=== PATIENT | male | born 1935 | race Caucasian/White ===

== ENCOUNTER 2021-01-22 19:30 | Emergency (ER) | payer MEDICARE, OTHER, SELFPAY ==
[2021-01-22 19:42] VITALS: BP 205/94; PULSE 70; RESP 15; TEMP 36.3; O2SAT 97; BMI 28.9
[2021-01-22 23:20] LABS: Hematocrit 48.3 % (41-53); Hemoglobin 16.6 g/dL (13.5-17.5)
[2021-01-22 23:25] LABS: INR 2.7 (0.9-1.3); Prothrombin Time 31.4 SECONDS (10.1-12.7)
[2021-01-23 00:48] VITALS: BP 198/98; PULSE 70; RESP 17; O2SAT 97
[2021-01-23] MEDS: PROPARACAINE 0.5% OPHTH SOL 1 DROPS EYE-RIGHT (01:06)
--- NOTE | 2021-01-23 02:56 | ED_ITS ---
HPI - Eye Problem General Chief complaint: Eye Problems Stated complaint: rt eye visual changes, redness Time Seen by Provider: 01/22/21 23:02 Source: patient Mode of arrival: Ambulatory Limitations: no limitations History of Present Illness HPI Narrative: 85M former smoker on coumadin with pacemaker presents with a chief complaint of change in vision of his right eye of. He states that he started having clotting vision 6 or 7 days ago and has gradually worsened to the point where today he can only see vague shadows and no discernible images. He denies any pain nor any trauma. Over the course of the day he was working and someone mention his eye was bleeding, he looked in the mirror noted and impressive swelling and subconjunctival hemorrhage of his right eye. He has no headache or other neurologic symptoms. He denies any history of the same. Related Data Home Medications Medication Instructions Recorded Confirmed aspirin 81 mg PO QDAY #0 01/18/17 01/22/21 furosemide 40 mg tablet 40 mg PO QAM 11/05/20 01/22/21 multivitamin 1 tab PO DAILY 11/05/20 01/22/21 sennosides 8.6 mg tablet 8.6 mg PO DAILY PRN 11/05/20 01/22/21 Previous Rx's Medication Instructions Recorded atorvastatin [Lipitor] 20 mg PO HS #30 tab 01/18/17 carvedilol [Coreg] 6.25 mg PO BID #60 tab 01/18/17 methotrexate sodium 5 tab PO QWEEK #20 tab 01/18/17 tamsulosin [Flomax] 0.4 mg PO QDAY #30 cap 01/18/17 warfarin [Coumadin] 5 mg PO SEE INSTRUCTIONS #100 tab 01/18/17 nitroglycerin 0.4 mg sublingual 0.4 mg SUBLINGUAL Q5-15M PRN #30 11/09/20 tablet tab albuterol sulfate 90 mcg/actuation 2 puff INHALATION Q4-6H PRN #6.7 g 11/26/20 aerosol inhaler Allergies Allergy/AdvReac Type Severity Reaction Status Date / Time lisinopril [LISINOPRIL] Allergy Severe Swelling/UN Verified 01/22/21 19:52 SPECIFIED meperidine [From DEMEROL] Allergy Severe Anaphylaxis Verified 01/22/21 19:52 Review of Systems Constitutional Constitutional: Denies chills, Denies fatigue, Denies fever(s), Denies frequent falls, Denies lethargy and Denies weakness Eyes Eyes: Reports blurry vision, Denies change in vision, Denies eye discharge, Denies irritation and Reports loss of vision ENT Ears, Nose, Mouth, and Throat: Denies change in voice, Denies dizziness, Denies neck pain, Denies sore throat and Denies throat swelling Cardiovascular Cardiovascular: Denies chest pain, Denies irregular heart rhythm, Denies lightheadedness, Denies palpitations, Denies dyspnea, Denies dyspnea on exertion and Denies orthopnea Respiratory Respiratory: Denies cough, Denies dyspnea, Denies dyspnea on exertion and Denies wheezing Gastrointestinal Gastrointestinal: Denies abdominal pain, Denies change in bowel habits, Denies diarrhea, Denies nausea and Denies vomiting Musculoskeletal Musculoskeletal: Denies neck pain and Denies numbness Integumentary/Breasts Skin/Breast: Denies pruritus, Denies erythema, Denies rash and Denies wounds Neurologic Neurologic: Denies behavioral changes, Denies confusion, Denies dizziness, Denies frequent falls, Reports loss of vision, Denies numbness and Denies weakness Psychiatric Psychiatric: Denies anxiety, Denies behavioral changes, Denies confusion, Denies depression, Denies homicidal ideation and Denies suicidal ideation Endocrine Endocrine: Denies fatigue, Denies flushing and Denies palpitations Hematologic/Lymphatic Hematologic/Lymphatic: Denies easy bruising Allergic/Immunologic Allergic/Immunologic: Denies urticaria, Denies throat swelling and Denies wheezing Patient History Medical History Atrial fibrillation Cataracts, bilateral H/O adenomatous polyp of colon Presence of cardiac pacemaker Rheumatic fever Surgical History Anesthesia History of cataract removal with insertion of prosthetic lens History of coronary artery stent placement History of eye surgery History of surgery S/P AVR (aortic valve replacement) Social History Smoking Status: Former smoker quit status: quit date established additional social history: QUIT DATE FOR SMOKIN07/20/1994 Smoking Status: Former smoker alcohol intake frequency: 0-2 drinks per day Substance Use Type: does not use Exam Narrative Exam Narrative: GEN: AOx3 and in mild distress, GCS 15 EYES: Pupils are equal, round, and reactive to light and accommodation. Ext raoccular muscles are intact bilaterally. Large subconjunctival hemorrhage and right eye. No injection or watering. No hyphema noted. Pressure 19 mmHg. NO signficant abnormalities noted on slit lamp CHEST: Lungs are clear to auscultation bilaterally and free of wheezes, rales, or rhonchi. Heart rate is regular rhythm, there are no murmurs, clicks, rubs, or gallops. There is no chest wall tenderness. ABD: Abdomen is soft and nontender. There is no guarding or rebound. Bowel sounds are normal in all 4 quadrants. There is no mass or organomegaly. EXT: Full painless ROM of all extremities with no loss of sensation or strength. SKIN: Warm, pink, and dry. No erythema or rash Initial Vital Signs Initial Vital Signs: Vital Signs Temperature 97.4 F L 01/22/21 19:42 Pulse Rate 70 01/22/21 19:42 Respiratory Rate 15 01/22/21 19:42 Blood Pressure 205/94 H 01/22/21 19:42 Pulse Oximetry 97 01/22/21 19:42 Course Course Course Narrative: call to [facility]. NO obvious source of vision change, they request patient be transferred down to [facility] for complete dilated exam. Patient is aware of and in agreement with the plan. Orders Ordered: ED Orders 01/22/21 23:10 Hemoglobin and Hematocrit Stat Prothrombin Time INR Stat 01/23/21 03:44 COVID19 -Nasal swab/Pre-Proc Stat Discontinued Medications Proparacaine HCl (Proparacaine 0.5% Ophth Doris) 1 drops EYE-RIGHT NOW ONE Stop: 01/23/21 01:02 Last Admin: 01/23/21 01:06 Dose: 1 drops Documented by: CTRMARIO Vital Signs Vital signs: Vital Signs - 8 hr 01/23/21 00:48 01/23/21 03:58 01/23/21 04:00 Pulse Rate 70 70 70 Respiratory Rate 17 Blood Pressure 198/98 H 161/83 H Pulse Oximetry 97 97 96 MDM - Eye Problem Lab Data Result diagrams: 01/22/21 23:10 Labs: Lab Results 01/22/21 01/22/21 01/23/21 Range/Units 23:10 23:10 03:44 Hgb 16.6 (13.5-17.5) g/dL Hct 48.3 (41-53) % PT 31.4 H (10.1-12.7) SECONDS INR 2.7 H (0.9-1.3) SARS-CoV-2 (PCR) Negative (Negative) Discharge Plan Departure Patient Disposition: [facility] Clinical Impression: Loss of vision Subconjunctival hemorrhage Qualifiers: Laterality: right Qualified Code(s): H11.31 - Conjunctival hemorrhage, right eye Prescriptions: No Action aspirin 81 MG tablet,delayed release (DR/EC) 81 mg PO QDAY Qty: 0 RF: 0 carvedilol [Coreg] 6.25 MG tablet 6.25 mg PO BID Qty: 60 RF: 5 atorvastatin [Lipitor] 20 MG tablet 20 mg PO HS Qty: 30 RF: 5 warfarin [Coumadin] 2.5 MG tablet 5 mg PO SEE INSTRUCTIONS Qty: 100 RF: 5 methotrexate sodium 2.5 MG tablet 5 tab PO QWEEK Qty: 20 RF: 5 tamsulosin [Flomax] 0.4 MG capsule,extended release 24hr 0.4 mg PO QDAY Qty: 30 RF: 5 albuterol sulfate 90 mcg/actuation HFA aerosol inhaler 2 puff inhalation Q4-6H PRN (Reason: bronchospasm) Qty: 6.7 RF: 2 nitroglycerin [Nitrostat] 0.4 mg tablet, sublingual 0.4 mg sublingual Q5-15M PRN (Reason: chest pain) Qty: 30 RF: 2 furosemide 40 mg tablet 40 mg PO QAM RF: 0 multivitamin Tablet 1 tab PO DAILY RF: 0 sennosides [senna] 8.6 mg tablet 8.6 mg PO DAILY PRN (Reason: constipation) RF: 0 Referrals: Damon Brewer MD [Primary Care Provider] -
[2021-01-23 03:58] VITALS: PULSE 70; O2SAT 97
[2021-01-23 04:00] VITALS: BP 161/83; PULSE 70; O2SAT 96
[2021-01-23 04:02] LABS: COVID19 -Nasal RAPID Negative (Negative)
== END 2021-01-23 04:35 | disposition short-term general hospital (02) ==
PROVIDERS: Emergency Provider Emergency Medicine; PCP Family Medicine
DX: H54.7 Unspecified visual loss (principal); H11.31 Conjunctival hemorrhage, right eye; Z20.822 Contact with and (suspected) exposure to COVID-19
CPT/HCPCS: 36415; 85014; 85018; 85610; 87635; 99283; 99284; C9803

== ENCOUNTER → 2025-03-05 12:15 | Outpatient (CLI) | payer MEDICARE, OTHER, SELFPAY ==
--- NOTE | 2025-03-05 12:20 | DI.RAD.S_ITS ---
PROCEDURE: FL BARIUM SWALLOW INDICATIONS: DYSPHAGIA COMPARISON: None. FINDINGS: Function: There were numerous episodes of tertiary contractions/esophageal spasms resulting in delayed and retrograde flow of ingested contrast. No elicited gastroesophageal reflux. There is normal transit of a calibrated barium tablet through the esophagus into the stomach. Morphology: Air-contrast images demonstrate normal mucosal morphology. Single contrast views show no esophageal strictures, extrinsic mass effects, or diverticula. Limited images of the stomach demonstrate normal appearance. IMPRESSION: Multiple episodes of moderate tertiary contractions/esophageal spasms resulting in delayed and retrograde flow of ingested contrast. Otherwise, no focal abnormalities identified within the esophagus. No intraluminal filling defects. No focal strictures. Dictated by: Clay Mcintosh M.D. on 03/05/2025 at 17:04 Approved by: Clay Mcintosh M.D. on 03/05/2025 at 17:07
== END ==
PROVIDERS: PCP Family Medicine; Referring Provider Family Medicine; Visit Provider Family Medicine
DX: R13.10 Dysphagia, unspecified (principal); K22.4 Dyskinesia of esophagus
CPT/HCPCS: 74220

== ENCOUNTER 2025-05-28 00:10 | Emergency (ER) | payer MEDICARE, OTHER, SELFPAY ==
[2025-05-28] VITALS (16 sets, daily range): BP systolic 137–179; BP diastolic 66–84; PULSE 60–71; RESP 14–27; TEMP 37.1; O2SAT 94–98
--- NOTE | 2025-05-28 00:24 | EKG_ITS ---
[address] [address] [address] [address] Test Date: 2025-05-28 Pat Name: Jorge Neville Department: Room: Gender: Male Pearl Technician: AMISHA : [id number] Requested By: Order Number: [id number] Reading MD: Jeff Lew MD Measurements Intervals [place] Rate: 70 P: AL: QRS: -52 QRSD: 172 T: 146 QT: 466 QTc: 503 Interpretive Statements Ventricular-paced rhythm Electronically Signed On 06-08-2025 8:59:12 PST by Jeff Lew MD
--- NOTE | 2025-05-28 00:41 | DI.RAD.S_ITS ---
PROCEDURE: XR CHEST 1V INDICATIONS: Chest Pain TECHNIQUE: One view of the chest was acquired. COMPARISON: [facility] ([place]), CR, XR CHEST 2V, 02/26/2024, 14:29. FINDINGS: Surgical changes and devices: To the cardiac pacemaker. Left atrial exclusion clip. Median sternotomy wires. Lungs and pleura: Lungs are clear. No pleural effusions or pneumothorax. Bilateral pleural calcifications, unchanged. Mediastinum: Mediastinal contours appear normal. Heart size is normal. Bones and chest wall: No suspicious bony lesions. Overlying soft tissues appear unremarkable. IMPRESSION: No acute cardiopulmonary abnormality is seen. Dictated by: Lai Mccarthy M.D. on 05/28/2025 at 1:41 Approved by: Lai Mccarthy M.D. on 05/28/2025 at 1:42
[2025-05-28 00:52] LABS: Add Manual Diff / Slide Review NO; Hematocrit 40.5 % (41-53); Hemoglobin 13.8 g/dL (13.5-17.5); Lymphocytes Absolute Auto 1000 /uL (1100-4500); Mean Corpuscular HGB Conc 34.1 % (30-36); Mean Corpuscular Hemoglobin 32.5 PG (26-34); Mean Corpuscular Volume 95.3 fL (80-100); Platelet Count 353 X10^3/uL (150-400)
[2025-05-28 00:53] LABS: INR 2.0 (0.9-1.3); Prothrombin Time 22.6 SECONDS (9.4-12.5)
[2025-05-28 00:55] LABS: PTT Partial Thromboplastin Tim 35 SECONDS (25.1-36.5)
[2025-05-28 00:58] LABS: Alanine Aminotransferase 21 IU/L (<50); Albumin 4.1 g/dL (3.5-5.0); Albumin Globulin Ratio 1.6 (1.0-2.8); Alkaline Phosphatase 87 U/L (38-126); Blood Urea Nitrogen 33 mg/dL (9-20); Calcium 8.9 mg/dL (8.4-10.2); Carbon Dioxide 28 mmol/L (22-32); Chloride 98 mmol/L (98-107); Creatine Kinase 25 U/L (55-170); Estimated Glomerular Filt Rate 49 mL/min (>60); Globulin 2.6 g/dL (1.7-4.1); Glucose 133 mg/dL (70-99); HEMOLYSIS < 15 (0-50); Lipase 703 U/L (23-300); Magnesium 2.0 mg/dL (1.6-2.3); Potassium 4.4 mmol/L (3.4-5.1); Sodium 134 mmol/L (137-145); Total Protein 6.7 g/dL (6.3-8.2)
[2025-05-28 01:10] LABS: NT-proBNP (BNP-Adult 18+) 3590 pg/mL (<450); Troponin I 0.039 ng/mL (0.01-0.034)
--- NOTE | 2025-05-28 01:15 | ED_ITS ---
HPI - Chest Pain General Chief Complaint: Chest Pain Stated Complaint: L arm/shoulder pain, chest pain Time Seen by Provider: 05/28/25 00:25 Source: patient and EMS Mode of arrival: EMS Limitations: no limitations History of Present Illness HPI narrative: 89-year-old male with a history of coronary bypass, congestive heart failure, COPD presents with sudden left shoulder pain started radiating down his left arm. He denies any shortness of breath associated with this pain. He is brought in via EMS and currently the patient is pain-free after some nitroglycerin and fentanyl. Related Data Home Medications ?Medication ?Instructions ?Recorded ?Confirmed aspirin 81 mg tablet,delayed 81 mg PO QDAY ##0 7 01/22/21 release furosemide 40 mg tablet 40 mg PO QAM 11/05/20 multivitamin 1 tab PO DAILY 11/05/2012/30 sennosides 8.6 mg tablet (senna) 8.6 mg PO DAILY PRN c onstipation 11/05/20 01/22/21 Previous Rx's ?Medication ?Instructions ?Recorded atorvastatin 20 mg tablet (Lipitor) 20 mg PO HS #30 ta bs 01/18/17 methotrexate sodium 2.5 mg tablet 5 tab PO QWEEK #20 t abs 01/18/17 tamsulosin 0.4 mg capsule (Flomax) 0.4 mg PO QDAY #30 caps 01/18/17 warfarin 2.5 mg tablet (Coumadin) 5 mg (2 x 2.5 mg) PO SEE 01/18/17 INSTRUCTIONS #100 tabs nitroglycerin 0.4 mg sublingual 0.4 mg sublingual Q5-1 5M PRN chest 11/09/20 tablet (Nitrostat) pain #30 tabs albuterol sulfate 90 mcg/actuation 2 puff inhalation Q 4-6H PRN 11/26/20 aerosol inhaler bronchospasm #6.7 grams Coreg 6.25 mg tablet (carvedilol) 6.25 mg PO BID #60 t abs 04/23/21 Allergies Allergy/AdvReac Type Severity Reaction Status Date / Time lisinopril (LISINOPRIL) Allergy Severe Swelling/UN Verified 05/28/25 00:20 SPECIFIED meperidine (From DEMEROL) Allergy Severe Anaphylaxis Verified 05/28/25 00:20 Review of Systems Review of Systems ROS Unobtainable: All systems reviewed & are unremarkable except as noted in HPI and below Patient History Medical History Atrial fibrillation Cataracts, bilateral H/O adenomatous polyp of colon Presence of cardiac pacemaker Rheumatic fever Surgical History Anesthesia History of cataract removal with insertion of prosthetic lens History of coronary artery stent placement History of eye surgery History of surgery S/P AVR (aortic valve replacement) Social History Smoking Status: Former smoker quit status: quit date established additional social history: QUIT DATE FOR SMOKIN07/20/1994 Smoking Status: Former smoker alcohol intake frequency: 0-2 drinks per day Exam Narrative Exam Narrative: General: Patient appears to be in no acute distress, acting appropriately Head: normocephalic, atraumatic, HEENT: Pupils equal round reactive, eyes tracking well, neck supple, no JVD Heart: regular rate and rhythm, no murmurs, rubs, or gallops heard Lungs: clear to auscultation, no adventitious sounds Abdomen: soft , nontender, nondistended, positive bowel sounds Neurological: no focal neurological signs, moving all extremities well, alert and oriented x3, Psych: good judgment ,good insight, mood is normal. Initial Vital Signs Initial Vital Signs: Vital Signs Temperature 98.8 F 05/28/25 00:18 Pulse Rate 71 05/28/25 00:18 Respiratory Rate 22 05/28/25 00:18 Blood Pressure 159/76 H 05/28/25 00:18 Pulse Oximetry 98 05/28/25 00:18 Oxygen Delivery Method Room Air 05/28/25 00:18 Scores HEART Score Heart Score history: Slightly Suspicious Heart Score EKG: Normal Heart Score Age: > or = 65 years old Heart Score risk factors: 1-2 risk factors Heart Score troponin: < or = to normal limit Heart Score Total: 3 Course Orders Ordered: ED Orders 05/28/25 00:25 Complete Blood Count AUTO DIFF Stat Comprehensive Metabolic Panel Stat Lipase Stat Magnesium Stat NT-proBNP (BNP-Adult 18+) Stat PTT Partial Thromboplastin Rojelio Stat Prothrombin Time INR Stat Troponin & CK Cardiac Panel Stat 05/28/25 00:41 XR chest 1V Stat EKG-12 Lead Stat 05/28/25 02:35 Trop I [Troponin I] Stat 05/28/25 04:35 Troponin I Stat Reevaluation(s) Reevaluation #1: Upon re-evaluation, patient's 2nd set of troponin is normal. Patient is resting and sleeping comfortably without any complaints. Reevaluation #2: Patient continues to be resting comfortably with no complaints. Third set of troponin is also normal. Vital Signs Vital signs: Vital Signs - 8 hr 05/28/25 00:18 05/28/25 00:18 05/28/25 00:30 Temperature 98.8 F Pulse Rate 71 69 Respiratory Rate 22 27 H Blood Pressure 159/76 H Pulse Oximetry 98 97 Oxygen Delivery Method Room Air Room Air 05/28/25 00:30 05/28/25 01:00 05/28/25 01:00 Temperature Pulse Rate 60 Respiratory Rate 25 H Blood Pressure 151/67 H 137/72 Pulse Oximetry 96 Oxygen Delivery Method Room Air 05/28/25 01:30 05/28/25 02:00 05/28/25 02:00 Temperature Pulse Rate 69 69 Respiratory Rate 24 16 Blood Pressure 162/76 H Pulse Oximetry 96 95 Oxygen Delivery Method Room Air Room Air 05/28/25 02:30 05/28/25 02:31 05/28/25 02:31 Temperature Pulse Rate 69 69 Respiratory Rate 17 17 Blood Pressure 161/74 H Pulse Oximetry 95 95 Oxygen Delivery Method Room Air Room Air 05/28/25 03:00 05/28/25 03:00 05/28/25 03:30 Temperature Pulse Rate 69 69 Respiratory Rate 17 14 Blood Pressure 179/80 H Pulse Oximetry 95 95 Oxygen Delivery Method Room Air Room Air 05/28/25 03:30 05/28/25 04:00 05/28/25 04:01 Temperature Pulse Rate 69 69 Respiratory Rate 18 15 Blood Pressure 166/84 H Pulse Oximetry 95 95 Oxygen Delivery Method Room Air Room Air 05/28/25 04:01 05/28/25 04:30 05/28/25 04:31 Temperature Pulse Rate 69 Respiratory Rate 14 Blood Pressure 170/76 H 164/75 H Pulse Oximetry 95 Oxygen Delivery Method Room Air 05/28/25 04:31 05/28/25 05:00 05/28/25 05:01 Temperature Pulse Rate 69 69 69 Respiratory Rate 14 17 18 Blood Pressure Pulse Oximetry 95 94 94 Oxygen Delivery Method Room Air Room Air Room Air 05/28/25 05:01 05/28/25 05:30 05/28/25 05:30 Temperature Pulse Rate 69 Respiratory Rate 21 Blood Pressure 139/75 145/66 H Pulse Oximetry 96 Oxygen Delivery Method Room Air MDM - Chest Pain Lab Data 05/28/25 00:25 05/28/25 00:25 Labs: Lab Results 05/28/25 05/28/25 05/28/25 Range/Units 00:25 02:35 04:35 WBC 13.4 H (4.5-11.0) X10^3/uL RBC 4.25 L (4.5-5.9) X10^6/uL Hgb 13.8 (13.5-17.5) g/dL Hct 40.5 L (41-53) % MCV 95.3 (80-100) fL MCH 32.5 (26-34) PG MCHC 34.1 (30-36) % RDW 15.3 H (11.6-14.8) % Plt Count 353 (150-400) X10^3/uL Neut % (Auto) 82.9 H (50-75) % Lymph % (Auto) 7.7 L (25-40) % [place] % (Auto) 8.0 (3-14) % Eos % (Auto) 0.4 L (2-4) % Baso % (Auto) 1.0 (0-2) % Neut # (Auto) 69275 H (7932-1300) /uL Lymph # (Auto) 1000 L (2528-2513) /uL [place] # (Auto) 1100 H (0-900) /uL Eos # (Auto) 100 (0-450) /uL Baso # (Auto) 100 (0-100) /uL PT 22.6 H (9.4-12.5) SECONDS INR 2.0 H (0.9-1.3) APTT 35 (25.1-36.5) SECONDS Sodium 134 L (137-145) mmol/L Potassium 4.4 (3.4-5.1) mmol/L Chloride 98 (98-107) mmol/L Carbon Dioxide 28 (22-32) mmol/L BUN 33 H (9-20) mg/dL Creatinine 1.38 H (0.66-1.25) mg/dL Estimated GFR 49 L (>60) mL/min BUN/Creatinine Ratio 23.9 H (6-22) Glucose 133 H (70-99) mg/dL Calcium 8.9 (8.4-10.2) mg/dL Magnesium 2.0 (1.6-2.3) mg/dL Total Bilirubin 0.7 (0.2-1.3) mg/dL AST 31 (17-59) IU/L ALT 21 (<50) IU/L Alkaline Phosphatase 87 (38-126) U/L Total Creatine Kinase 25 L (55-170) U/L Troponin I 0.039 H 0.031 0.025 (0.01-0.034) ng/mL NT-Pro-B Natriuret Pep 3590 H (<450) pg/mL Total Protein 6.7 (6.3-8.2) g/dL Albumin 4.1 (3.5-5.0) g/dL Globulin 2.6 (1.7-4.1) g/dL Albumin/Globulin Ratio 1.6 (1.0-2.8) Lipase 703 H (23-300) U/L Imaging Data Chest x-ray: Radiologist's Impression: No acute cardiopulmonary abnormality is seen. ECG Data Interpretation: EKG shows a ventricular paced rhythm. [facility] Narrative Medical decision making narrative: 89-year-old male with a history of coronary bypass graft and a pacemaker presented with left shoulder pain that radiated down his left arm. After a dose of nitroglycerin and fentanyl patient's pain dissipated. His 2nd set of troponins was negative. Patient remained asymptomatic during his course here in the ED. went ahead and repeat a 3rd set of troponins which continued to be negative. Patient remains asymptomatic. Discharge Plan Departure Patient Disposition: Home Clinical Impression: Atypical chest pain Instructions: DI for Atypical Chest Pain Activity Restrictions/Additional Instructions: Resume home medications. Follow up with Cardiology. Follow up sooner here in the ED for new or worsening symptoms. Prescriptions: No Action aspirin 81 MG tablet,delayed release (DR/EC) 81 mg PO QDAY Qty: 0 atorvastatin [Lipitor] 20 MG tablet 20 mg PO HS Qty: 30 5RF warfarin [Coumadin] 2.5 MG tablet 5 mg PO SEE INSTRUCTIONS Qty: 100 5RF methotrexate sodium 2.5 MG tablet 5 tab PO QWEEK Qty: 20 5RF tamsulosin [Flomax] 0.4 MG capsule,extended release 24hr 0.4 mg PO QDAY Qty: 30 5RF albuterol sulfate 90 mcg/actuation HFA aerosol inhaler 2 puff inhalation Q4-6H PRN (Reason: bronchospasm) Qty: 6.7 2RF carvedilol [Coreg] 6.25 mg tablet 6.25 mg PO BID Qty: 60 0RF nitroglycerin [Nitrostat] 0.4 mg tablet, sublingual 0.4 mg sublingual Q5-15M PRN (Reason: chest pain) Qty: 30 2RF furosemide 40 mg tablet 40 mg PO QAM multivitamin Tablet 1 tab PO DAILY sennosides [senna] 8.6 mg tablet 8.6 mg PO DAILY PRN (Reason: constipation) Referrals: Art Morales MD [Primary Care Provider, Family Practice] Stand Alone Forms: Patient Portal/API
--- NOTE | 2025-05-28 01:19 | PC.NURSE ---
Imaging at bedside
[2025-05-28 03:05] LABS: Troponin I 0.031 ng/mL (0.01-0.034)
--- NOTE | 2025-05-28 03:40 | PC.NURSE ---
Pt resting quietly with eyes closed, resps even and not labored. No distress noted at this time. Pt remains connected to cardiac, resp, blood pressure, and pulse ox monitors with alarms on and audible. VS stable at this time. Call light within reach.
[2025-05-28 05:05] LABS: Troponin I 0.025 ng/mL (0.01-0.034)
--- NOTE | 2025-05-28 05:30 | PC.NURSE ---
Pt talking to daughter on telephone figuring out how pt will get back home to [facility]
== END 2025-05-28 06:19 | disposition home or self-care (01) ==
PROVIDERS: Emergency Provider Family Medicine; PCP Family Medicine
DX: R07.89 Other chest pain (principal); I50.9 Heart failure, unspecified; M79.602 Pain in left arm; Z95.1 Presence of aortocoronary bypass graft; Z95.0 Presence of cardiac pacemaker
CPT/HCPCS: 36415; 71045; 80053; 82550; 83690; 83735; 83880; 84484; 85025; 85610; 85730; 93005; 93010; 99283; 99284